=== PATIENT | female | born 1995 ===

== ENCOUNTER 2018-04-19 08:38 | Emergency (ER) | payer OTHER ==
[2018-04-19 08:41] VITALS: BMI 41.3
[2018-04-19 08:43] VITALS: TEMP 98.4; O2SAT 99
--- NOTE | 2018-04-19 09:29 | ED PDOC ---
Lower Extremity Pain/Injury Time Seen by Provider: 04/19/18 09:07 Chief Complaint (Nursing): Lower Extremity Problem/Injury History Per: Patient Additional Complaint(s): Pt. states 2 weeks ago she fell down injuring the L knee. Pain developed 2-3 days afterwards and then resolved spontaneously. On Friday she was taking out the garbage when she felt her L knee "stretch" and pain has been present since. Denies numbness, tingling, calf pain, previous injury to knee. Past Medical History Reviewed: Historical Data, Nursing Documentation, Vital Signs Vital Signs: Last Vital Signs Temp 98.4 F 04/19/18 08:41 Pulse 103 H 04/19/18 08:41 Resp 20 04/19/18 08:41 BP 123/84 04/19/18 08:41 Pulse Ox 99 04/19/18 08:41 - Surgical History Surgical History: No Surg Hx - Family History Family History: States: No Known Family Hx - Allergies Allergies/Adverse Reactions: Allergies Allergy/AdvReac Type Severity Reaction Status Date / Time No Known Allergies Allergy Verified 04/19/18 09:08 Review of Systems ROS Statement: Except As Marked, All Systems Reviewed And Found Negative Physical Exam - Physical Exam Appears: Positive for: Well, Non-toxic, No Acute Distress Skin: Positive for: Normal Color, Warm. Negative for: Rash Eye Exam: Positive for: Normal appearance Pulses-Dorsalis Pedis (L): 2+ Pulses-Dorsalis Pedis (R): 2+ Extremity: Positive for: Normal ROM (actively of both knees), Other (L knee without warmth, swelling, deformity, tenderness, or break in skin integrity). Negative for: Pedal Edema (b/l), Calf Tenderness (b/l) Neurologic/Psych: Positive for: Alert, Oriented (x3) - ECG O2 Sat by Pulse Oximetry: 99 - Progress ED Course And Treament: Knee x-ray ordered. Offered pain meds but refused. Knee immobilized in immobilizer applied by polysomnograph tech. Crutches and crutch walking instructions given. Disposition - Clinical Impression Clinical Impression: Knee injury - Patient ED Disposition Is Patient to be Admitted: No - Disposition Referrals: David Sanches III, MD [Staff Provider] - [facility] [Outside] Disposition: Routine/Home Disposition Time: 10:52 Condition: STABLE Additional Instructions: SORAIDA QUINTON, thank you for letting us take care of you today. Your provider was Blessing Reese MD and you were treated for LT KNEE PAIN. The emergency medical care you received today was directed at your acute symptoms. If you were prescribed any medication, please fill it and take as directed. It may take sev eral days for your symptoms to resolve. Return to the Emergency Department if your symptoms worsen, do not improve, or if you have any other problems. Please contact your doctor or call one of the physicians/clinics you have been referred to that are listed on the Patient Visit Information form that is included in your discharge packet. Bring any paperwork you were given at discharge with you along with any medications you are taking to your follow up visit. Our treatment cannot replace ongoing medical care by a primary care provider outside of the emergency department. Thank you for allowing the [facility] team to be part of your care today. If you had an X-Ray or CT scan: A Radiologist will review the ED reading if any change in treatment is needed we will contact you. If you had a blood, urine, or wound culture: It will take several days for the results, if any change in treatment is needed we will contact you. If you had an STI test: It will take 48 hours for the results. Please call after 1 week if you have not heard back. Instructions: How to Use Crutches, Knee Sprain (DC) Forms: [employer] (Maldivian), [facility] ED School/Work Excuse
--- NOTE | 2018-04-19 10:24 | RAD ---
Date of service: 04/19/2018 PROCEDURE: Left Knee Radiographs. HISTORY: Pain. COMPARISON: None. FINDINGS: BONES: Three views of the left knee were performed. No fracture is seen. No malalignment of the knee is noted. Patella appears in normal location. Tibial plateaus are intact. No focal osteochondral defect is noted. JOINTS: There is some minor lateral patellofemoral degenerative change. Correlation for tracking abnormality would be suggested.. JOINT EFFUSION: None. OTHER FINDINGS: None. IMPRESSION: No fracture.
[2018-04-19 12:33] VITALS: BP 118/82; PULSE 90; RESP 18
== END 2018-04-19 11:30 | disposition home or self-care (01) ==
LOC: H.ER 08:38
DX: S89.92XA Unspecified injury of left lower leg, initial encounter (principal); W19.XXXA Unspecified fall, initial encounter; Y92.89 Other specified places as the place of occurrence of the external cause